=== PATIENT | female | born 1950 | race Caucasian/White ===

== ENCOUNTER 2020-04-21 12:24 | Outpatient (REF) | payer SELFPAY ==
[2020-04-21 13:38] LABS: Abs Immature Grans 0.03 10^3/uL (0.0-0.06); Absolute Basophil Count 0.04 10^3/uL (0.0-0.2); Absolute Eosinophil Count 0.38 10^3/uL (0.0-0.7); Absolute Lymphocyte Count 1.55 10^3/uL (1.2-3.4); Absolute Monocyte Count 0.61 10^3/uL (0.1-0.8); Absolute Neutrophil Count 4.38 10^3/uL (1.2-6.7); Basophils % 0.6; Eosinophils % 5.4; HGB 11.9 g/dL (11.2-15.7); Immature Grans % 0.4; Lymphocytes % 22.2; MCH 32.3 pg (27.0-33.0); MCHC 31.3 % (32.0-36.0); MCV 103.3 fL (80-95); Monocytes % 8.7; Neutrophils % 62.7; Nucleated RBC 0 %; Platelet Count 169 10^3/uL (130-400); RBC 3.68 10^6/uL (3.93-5.22); RDW 14.9 % (11.7-14.6); RDW-SD 56.8 fL; WBC 6.99 10^3/uL (4.4-10.8)
[2020-04-21 13:55] LABS: ALT 52 U/L (14-59); AST 35 U/L (15-37); Albumin 3.3 g/dL (3.4-5.0); Alkaline Phosphatase 57 U/L (46-116); Anion Gap 8.3 mmol/L (3-11); BUN 21 mg/dL (7-18); C-Reactive Protein 0.38 mg/dL (0.0-0.3); CO2 28.7 mmol/L (21.0-32.0); CREATININE 0.96 mg/dL (0.55-1.02); Calcium 8.6 mg/dL (8.5-10.1); Chloride 104 mmol/L (98-107); Estimated GFR 57.63 (mL/min/1.73m2); Glucose 141 mg/dL (74-106); Potassium 4.1 mmol/L (3.5-5.1); Sodium 141 mmol/L (136-145); Total Protein 6.1 g/dL (6.4-8.2)
[2020-04-21 14:19] LABS: ESR 25 mm/hr (0-30)
[2020-04-24 11:44] LABS: Hepatitis C Ab w Rflx HCV PCR Negative (Negative)
== END 2020-04-21 12:44 ==
LOC: LBN 12:24
PROVIDERS: PCP Family Medicine; Visit Provider Nurse Practitioner Adult Health
DX: B19.20 Unspecified viral hepatitis C without hepatic coma (principal); E11.43 Type 2 diabetes mellitus with diabetic autonomic (poly)neuropathy; E78.89 Other lipoprotein metabolism disorders; I10 Essential (primary) hypertension
CPT/HCPCS: 80053; 85652; 86803; 83036; 85025; 86140

== ENCOUNTER 2020-05-13 11:49 | Outpatient (REF) | payer SELFPAY | END 2020-05-13 12:09 | LOC: LBN 11:49 | PROVIDERS: PCP Family Medicine; Visit Provider Nurse Practitioner Adult Health | DX: A04.71 Enterocolitis due to Clostridium difficile, recurrent (principal) | CPT/HCPCS: 87324 ==

== ENCOUNTER 2020-05-22 13:40 | Outpatient (REF) | payer MEDICARE, SELFPAY ==
[2020-05-22 14:25] LABS: Abs Immature Grans 0.15 10^3/uL (0.0-0.06); Absolute Basophil Count 0.02 10^3/uL (0.0-0.2); Absolute Lymphocyte Count 0.49 10^3/uL (1.2-3.4); Absolute Monocyte Count 0.63 10^3/uL (0.1-0.8); Absolute Neutrophil Count 9.45 10^3/uL (1.2-6.7); Basophils % 0.2; Eosinophils % 2.7; HCT 36.9 % (36.0-46.0); Immature Grans % 1.4; Lymphocytes % 4.4; MCH 32.6 pg (27.0-33.0); MCHC 32.5 % (32.0-36.0); MCV 100.3 fL (80-95); MPV 12.8 fL (8.0-11.0); Monocytes % 5.7; Neutrophils % 85.6; Nucleated RBC 0 %; Platelet Count 222 10^3/uL (130-400); RBC 3.68 10^6/uL (3.93-5.22); RDW 15.1 % (11.7-14.6); RDW-SD 56.5 fL; WBC 11.04 10^3/uL (4.4-10.8)
[2020-05-22 15:31] LABS: ALT 78 U/L (14-59); AST 56 U/L (15-37); Albumin 3.1 g/dL (3.4-5.0); Alkaline Phosphatase 82 U/L (46-116); Anion Gap 19.5 mmol/L (3-11); Bilirubin, Total 0.6 mg/dL (0.2-1.0); CO2 16.5 mmol/L (21.0-32.0); Chloride 98 mmol/L (98-107); Estimated GFR 2.89 (mL/min/1.73m2); Glucose 86 mg/dL (74-106); Sodium 134 mmol/L (136-145); TSH 2.53 uIU/mL (0.36-3.74); Total Protein 7.4 g/dL (6.4-8.2); Vitamin B12 569 pg/mL (193-986)
[2020-05-22 15:52] LABS: BUN 234 mg/dL (7-18); CREATININE 12.82 mg/dL (0.55-1.02)
[2020-05-22 15:53] LABS: Potassium 8.2 mmol/L (3.5-5.1)
== END 2020-05-22 14:00 ==
LOC: LBN 13:40
PROVIDERS: PCP Family Medicine; Visit Provider Nurse Practitioner Adult Health
DX: R68.89 Other general symptoms and signs (principal); E11.9 Type 2 diabetes mellitus without complications; R94.6 Abnormal results of thyroid function studies
CPT/HCPCS: 80053; 82607; 84443; 85025

== ENCOUNTER 2020-05-22 16:33 | Emergency (ER) | payer MEDICARE, MEDICAID, SELFPAY ==
[2020-05-22] VITALS (53 sets, daily range): BP systolic 65–150; BP diastolic 30–109; PULSE 84–116; RESP 16–25; TEMP 36.8; O2SAT 94–99
--- NOTE | 2020-05-22 16:30 | RT.EKG_ITS ---
APPROVED REPORT Exam: Resting ECG Patient Location: E HR:84 bpm ECG Measurements Heart Rate 84 AXIS PA 184 P 40 QRSd 187 QRS -30 QT 478 T 101 QTc 565 Conclusion Sinus rhythm...normal P axis, V-rate 60- 99 Left bundle branch block...QRSd>120, broad/notched R
--- NOTE | 2020-05-22 17:00 | ED.GENADUL_ITS ---
Discharge Plan Disposition Patient Dis[facility] Condition: Serious Discharge Details Clinical Impression: Acute renal failure, Acute UTI Primary Care Provider: Braydon Akins ED Provider: Benjamín Berg Home Meds and New Rx's Prescriptions: No Action fluconazole [Diflucan] 100 mg Tablet 100 mg PO DAILY RF: 0 acetaminophen 325 mg Tablet 650 mg PO PRN PRNRF: 0 amlodipine 2.5 mg Tablet 2.5 mg PO DAILY RF: 0 atorvastatin 20 mg Tablet 20 mg PO QPM RF: 0 donepezil 10 mg Tablet 10 mg PO QHS RF: 0 citalopram 20 mg Tablet 20 mg PO DAILY RF: 0 furosemide 20 mg Tablet 20 mg PO QAM RF: 0 ibuprofen 600 mg Tablet 600 mg PO Q8H PRNRF: 0 bupropion HCl 300 mg Tablet Extended Release 24 Hr 300 mg PO QAM RF: 0 multivitamin Tablet 1 tab PO DAILY RF: 0 metformin 500 mg Tablet 500 mg PO BID RF: 0 metoprolol succinate 50 mg Tablet Extended Release 24 Hr 150 mg PO DAILY RF: 0 loperamide 2 mg Tablet 2 mg PO QAM RF: 0 loperamide 2 mg Tablet See Rx Instructions .ROUTE .COMPLEX PRNRF: 0 lisinopril 5 mg Tablet 5 mg PO DAILY RF: 0 pantoprazole 40 mg Tablet,Delayed Release (Dr/Ec) 40 mg PO DAILY RF: 0 Medical Decision Making <CHAO Gregory - Last Filed: 05/22/20 19:58> This is a 70-year-old female presenting to the ER from local rehab facility for increasing weakness, failure to thrive, rash, critical potassium and renal function. These labs were drawn earlier today. She has been treated with Diflucan as an outpatient but the rash is not getting any better. Family reports that the patient is a full code and would want dialysis if needed. I immediately discussed the case with Dr. Chavez. Patient had 2 lines of IV access, Shah catheter placed, received calcium gluconate, insulin, dextrose, albuterol neb, liter normal saline, 1 L lactated Ringer's. Will obtain EKG, repeat laboratory values from earlier today, add on troponin, BNP, lactate, VBG, and urinalysis. Based upon her renal function, likelihood that she will require dialysis, it does not appear as though we will be able to admit the patient here to our facility and therefore I very early on in her evaluation contacted the [facility] transfer center. EKG was obtained at 1642, please see official report by Dr. Zayas. Sinus rhythm, ventricular of 84. Left bundle branch block. QT interval 478, QTc 565, QRS 187. I did speak with the patient's daughter at 1655 Mate[address] De Jesus [phone], as my HPI states she does tell me that the patient is a full code and would want dialysis. She understands the gravity of the situation and understands the patient will likely require transfer. I initially spoke with Jessie from the [facility] transfer center at 1713, I was told that they could likely not take the patient however they were not on divert, and that we should begin looking elsewhere for transfer. I did clarify that they were not on divert and requested that they strongly consider excepting this critically ill patient. [facility] transfer line was then contacted and I spoke with them at 1728. They stated that they had limited transfer capabilities but I did speak with Dr. James, who was excepting the patient but then the transfer command center analyst, Dr. St, came on the line and stated that he spoke with Dr. Douglas at [facility] and they would in fact be excepting the patient. Awaiting call from [facility]. In the meantime laboratory values have resulted. White blood cell count of 11.12 hemoglobin 12.5 hematocrit 39.0 platelet count 234 VBG pH 7.17, sodium 134, potassium 8.2, chloride 97, carbon 118.7 anion gap 18.3 BUN 245, creatinine 12.75, glucose 97, calcium 7.8 magnesium 2.3 troponin less than 0.05 BNP 1745, urine cloudy, moderate blood, trace leukoesterase, 10- 20 white blood cells. Many bacteria Creatinine 1 month ago was 0.92 and potassium was 4.1 Patient initially presented with blood pressure 142/109 and subsequently has trended downward to the 60s over 30s. Case again discussed with Dr. Chavez. We did initiate a nor epi drip of 10. Blood pressure did subsequently trend upward 139/43. Patient did require the nor epi to maintain her blood pressure in appropriate range. We did request records from [facility] and I was able to review some of her previous medical records. I placed a call to [facility] at 181 after a head not received a phone call back. After speaking with Jessie and being placed on hold my call was disconnected. I then spoke with Lucita at the transfer center at 182 from [facility] regarding my concern that I had not heard from [facility], her plan was to reach out to Dr. St once again. I then received a phone call from [facility] transfer center, Jessie, at 182 requesting that I speak with Dr. Mclaughlin at [facility] for potential transfer. After discussing the case with him, he felt that the patient was too sick to go to his facility. In the meantime I once again spoke with the patient's daughter explaining her the situation, she understood but was quite concerned that the transfer was taking so long. I then received a phone call from Lucita at the [facility] transfer line she states that she was told by Dr. Douglas that [facility] would be excepting and would be calling us soon in order to accept transfer. This call took place at 183. Given transfer has been delayed, will obtain CT imaging of the chest, abdomen, pelvis without contrast to further evaluate for potential infectious process, obstruction, etc. When patient returned from CT she was given 2.25 IV of Zosyn. At 185 I received a call from [facility] and spoke with Dr. Brown, Dr. Ca, from the ICU and nephrology teams. I was told that Dr. Henderson would accept transfer of the patient into the ICU. All appropriate paperwork completed. I then spoke with the patient's daughter one last time to make her aware of the transfer. Patient is complaining of pruritus. Given her mental state I would prefer not to give her Benadryl, will instead give 125 IV Solu-Medrol. At 1950 her heart rate was 94, blood pressure 125/40. She is now more awake than her initial presentation. She understands that she will be transferred to [facility], has no additional questions or concerns at this time. It should be noted that at the time of her transfer we are awaiting the official read of the CT of chest, abdomen, pelvis, we did receive a message on the computer that the radiologist was pulled away for a more emergent study but that primarily there was nothing acute. Medical Records Medical records reviewed: Yes I reviewed the patient's medical records. Lab Data Lab results reviewed: Yes I reviewed the patient's lab results. Lab results narrative: 05/22/20 18:08 Urine - Reflex from Ua Urine Culture - Pending 05/22/20 17:51 Blood Blood Culture - Pending 05/22/20 17:51 Blood Blood Culture - Pending Laboratory Tests Range/Units 05/22/20 05/22/20 05/22/20 16:50 16:50 16:50 WBC (4.4-10.8) 10^3/uL 11.12 H RBC (3.93-5.22) 10^6/uL 3.88 L Hgb (11.2-15.7) g/dL 12.5 Hct (36.0-46.0) % 39.0 MCV (80-95) fL 100.5 H MCH (27.0-33.0) pg 32.2 MCHC (32.0-36.0) % 32.1 RDW (11.7-14.6) % 15.3 H Plt Count (130-400) 10^3/uL 234 MPV (8.0-11.0) fL 12.8 H Immature Gran % 1.2 Neutrophils % 88.6 Lymphocytes % 3.6 Monocytes % 4.3 Eosinophils % 2.1 Basophils % 0.2 Nucleated RBC % % 0 Absolute Neutrophils (1.2-6.7) 10^3/uL 9.85 H Absolute Lymphocytes (1.2-3.4) 10^3/uL 0.40 L Absolute Monocytes (0.1-0.8) 10^3/uL 0.48 Absolute Eosinophils (0.0-0.7) 10^3/uL 0.23 Absolute Basophils (0.0-0.2) 10^3/uL 0.02 VBG pH (7.31-7.41) VBG pCO2 (41-51) mmHg VBG pO2 mmHg VBG HCO3 (23-28) mmol/L VBG Total CO2 (24-29) mmol/L VBG O2 Saturation % VBG Base Excess (-2-3) mmol/L VBG Lactate (0.6-1.4) mmol/L Sodium (136-145) mmol/L 134 L Potassium (3.5-5.1) mmol/L 8.2 H* Chloride (98-107) mmol/L 97 L Carbon Dioxide (21.0-32.0) mmol/L 18.7 L Anion Gap (3-11) mmol/L 18.3 H BUN (7-18) mg/dL 245 H* Creatinine (0.55-1.02) mg/dL 12.75 H* Estimated GFR/1.73 m2 (mL/min/1.73m2) 2.91 Glucose (74-106) mg/dL 97 Calcium (8.5-10.1) mg/dL 7.3 L Magnesium (1.8-2.4) mg/dL 2.3 Total Bilirubin (0.2-1.0) mg/dL 0.7 AST (15-37) U/L 60 H ALT (14-59) U/L 87 H Alkaline Phosphatase (46-116) U/L 89 Troponin I (<0.06) ng/mL < 0.05 NT-Pro-B Natriuret Pep (<300) pg/mL 1745 H Total Protein (6.4-8.2) g/dL 8.2 Albumin (3.4-5.0) g/dL 3.2 L Urine Color (Yellow) Urine Clarity (Clear) Urine pH (5-8) Ur Specific [place] (1.005-1.025) Urine Protein (Negative) mg/dL Urine Ketones (Negative) mg/dL Urine Blood (Negative) Urine Nitrite (Negative) Urine Bilirubin (Negative) Urine Urobilinogen (Up TO 0.2) EU/dL Ur Leukocyte Esterase (Negative) Urine RBC (0-2) HPF Urine WBC (0-5) HPF Ur Epithelial Cells (Negative) HPF Urine Crystals (Negative) HPF Urine Bacteria (Negative) HPF Urine Casts (Negative) LPF Urine Mucus (Negative) Ur Culture Indicated? Urine Glucose (Negative) mg/dL Range/Units 05/22/20 05/22/20 05/22/20 17:20 17:20 18:08 WBC (4.4-10.8) 10^3/uL RBC (3.93-5.22) 10^6/uL Hgb (11.2-15.7) g/dL Hct (36.0-46.0) % MCV (80-95) fL MCH (27.0-33.0) pg MCHC (32.0-36.0) % RDW (11.7-14.6) % Plt Count (130-400) 10^3/uL MPV (8.0-11.0) fL Immature Gran % Neutrophils % Lymphocytes % Monocytes % Eosinophils % Basophils % Nucleated RBC % % Absolute Neutrophils (1.2-6.7) 10^3/uL Absolute Lymphocytes (1.2-3.4) 10^3/uL Absolute Monocytes (0.1-0.8) 10^3/uL Absolute Eosinophils (0.0-0.7) 10^3/uL Absolute Basophils (0.0-0.2) 10^3/uL VBG pH (7.31-7.41) 7.17 L* VBG pCO2 (41-51) mmHg 42 VBG pO2 mmHg 46 VBG HCO3 (23-28) mmol/L 15 L VBG Total CO2 (24-29) mmol/L 15 L VBG O2 Saturation % 75 VBG Base Excess (-2-3) mmol/L -13 L VBG Lactate (0.6-1.4) mmol/L 1.1 Sodium (136-145) mmol/L Potassium (3.5-5.1) mmol/L Chloride (98-107) mmol/L Carbon Dioxide (21.0-32.0) mmol/L Anion Gap (3-11) mmol/L BUN (7-18) mg/dL Creatinine (0.55-1.02) mg/dL Estimated GFR/1.73 m2 (mL/min/1.73m2) Glucose (74-106) mg/dL Calcium (8.5-10.1) mg/dL Magnesium (1.8-2.4) mg/dL Total Bilirubin (0.2-1.0) mg/dL AST (15-37) U/L ALT (14-59) U/L Alkaline Phosphatase (46-116) U/L Troponin I (<0.06) ng/mL NT-Pro-B Natriuret Pep (<300) pg/mL Total Protein (6.4-8.2) g/dL Albumin (3.4-5.0) g/dL Urine Color (Yellow) Yellow Urine Clarity (Clear) Cloudy Urine pH (5-8) 6.0 Ur Specific [place] (1.005-1.025) >= 1.030 H Urine Protein (Negative) mg/dL 30 H Urine Ketones (Negative) mg/dL Trace H Urine Blood (Negative) Moderate H Urine Nitrite (Negative) Negative Urine Bilirubin (Negative) Small H Urine Urobilinogen (Up TO 0.2) EU/dL 0.2 Ur Leukocyte Esterase (Negative) Trace H Urine RBC (0-2) HPF 3-5 H Urine WBC (0-5) HPF 10-20 H Ur Epithelial Cells (Negative) HPF Few Urine Crystals (Negative) HPF Negative Urine Bacteria (Negative) HPF Many Urine Casts (Negative) LPF Negative Urine Mucus (Negative) Trace Ur Culture Indicated? Yes Urine Glucose (Negative) mg/dL Negative ECG Data Attestation: I personally reviewed and interpreted this ECG (s) as follows: Interpretation: Please see official report by Dr. Chavez <Wilbur Chavez MD - Last Filed: 05/22/20 19:14> ?I had a [id number] encounter with the patient. I evaluated the patient. I discussed case with MANAGER LABORATORY/PA and I reviewed MANAGER LABORATORY/PA note and agree with note as documented. HPI <CHAO Gregory - Last Filed: 05/22/20 19:58> General Mode of arrival: EMS . Date/Time Provider Initiated Documentation: 05/22/20 16:35 . Limitations to Documentation: altered mental status . Information obtained by: patient, family and EMS . HPI Narrative: This is a 70-year-old female who resides at a local long-term care facility presenting via EMS with a history of diabetes, morbid obesity, generalized weakness, hypertension, obstructive sleep apnea, mild cognitive impairment, hyperlipidemia, depression, auditory hallucinations, visual hallucinations, osteoarthritis, bilateral leg edema. She sometime within the last month developed a rash and is taking Diflucan for a fungal rash. She was placed at the rehab facility on April 19 with a new diagnosis of dementia and inability to care for herself. Daughter states that she has seen a significant decline over the past 2-3 weeks. I was able to speak with her daughter Mateus don regarding their wishes, patient is currently a full code. They actually have the advanced directives paperwork at home and simply have not filled out yet but as of this very moment she is a full code. Patient was sent here today for abnormal lab values that were drawn just a couple of hours ago, increasing generalized weakness, not eating or drinking, a rash that is not responding to oral Diflucan. Patient has no history of renal failure. Patient is able to minimally interactive here in the ER, opens and closes her eyes, able to answer yes and no questions, moves all extremities. She is able to follow commands. She tells me no when asked if she has any pain. Patient admits that she overall does not feel well but has no specific questions or concerns right now. Patient did have to quarantine for 14 days one placed at the rehab facility, since her quarantine has had no sick contacts or travel. Related Data Home Medications Medication Instructions Recorded Confirmed acetaminophen 650 mg PO PRN PRN 05/22/20 05/22/20 amlodipine 2.5 mg PO DAILY 05/22/20 05/22/20 atorvastatin 20 mg PO QPM 05/22/20 05/22/20 bupropion HCl 300 mg PO QAM 05/22/20 05/22/20 citalopram 20 mg PO DAILY 05/22/20 05/22/20 donepezil 10 mg PO QHS 05/22/20 05/22/20 fluconazole [Diflucan] 100 mg PO DAILY 05/22/20 05/22/20 furosemide 20 mg PO QAM 05/22/20 05/22/20 ibuprofen 600 mg PO Q8H PRN 05/22/20 05/22/20 lisinopril 5 mg PO DAILY 05/22/20 05/22/20 loperamide 2 mg PO QAM 05/22/20 05/22/20 loperamide See Rx Instructions .ROUTE 05/22/20 05/22/20 .COMPLEX PRN metformin 500 mg PO BID 05/22/20 05/22/20 metoprolol succinate 150 mg PO DAILY 05/22/20 05/22/20 multivitamin 1 tab PO DAILY 05/22/20 05/22/20 pantoprazole 40 mg PO DAILY 05/22/20 05/22/20 Allergies Allergy/AdvReac Type Severity Reaction Status Date / Time No Known Allergies Allergy Unverified 05/22/20 16:49 General Stated Complaint: GenMedical MERISSA: 2 Review of Systems <CHAO Gregory - Last Filed: 05/22/20 19:58> Unobtainable due to mental status PFSH <CHAO Gregory - Last Filed: 05/22/20 19:58> Medical History Auditory hallucinations Cognitive impairment Depression Diabetes mellitus, type 2 Essential hypertension Functional urinary incontinence Hyperlipidemia Insomnia Morbid obesity Obstructive sleep apnea Onychogryphosis Primary osteoarthritis Visual hallucinations Weakness Social History Smoking risk assessment performed?: No Exam <CHAO Gregory - Last Filed: 05/22/20 19:58> Const General: cooperative and in distress Orientation: alert, awake, oriented to person and confused (Place and time) Limitations: altered mental status HENMT Head: normal to inspection, normocephalic and atraumatic Ears: external ears normal and EAC's normal General nose exam: external nose normal Mouth: moist mucous membranes abnormal (Dry) Throat: posterior oropharynx normal Eyes General: appearance normal, both eyes and all related structures Alignment and Position: alignment normal Periorbital: periorbital findings normal Eyelids: eyelids normal Conjunctivae: conjunctivae normal Sclera: sclerae normal Cornea: corneas normal Pupils: PERRL EOM: EOM intact bilaterally Direct ophthalmoscopy: normal light reflex Neck Neck: normal visual inspection, full ROM, no lymphadenopathy, no meningeal signs, trachea midline, supple and nontender Resp Effort & Inspection: normal respiratory effort, able to speak in complete sentences and cough Quality of cough: dry (Mild) Auscultation: diminished lung sounds bilaterally (Basis) Cardio Rate: regular rate Rhythm: regular rhythm GI Inspection: obesity Palpation: soft, not firm, no guarding and nontender Auscultation: normal bowel sounds Back/Spine/Pelvis Back: No back tenderness Skin General skin exam: dry skin Other: Patient has a diffuse patchy well demarcated, erythematous, blanchable, slightly papular rash is most concentrated on her back but does extend diffusely on her trunk, upper extremities and neck. There are no areas of excoriation, induration, warmth, tenderness, fluctuance. Neuro General: patient alert, patient awake, oriented Patient Orientation: Person and Confused (Place and time), moves all extremities, no meningeal signs and no focal motor deficits Cranial Nerves: CN's II-XI intact bilaterally Cognition: abnormal cognition Speech: speech normal Gait: other (Not tested) Motor: muscle tone normal throughout (Able to move all 4 extremities) and strength 5/5 throughout Sensory Exam: no sensory deficits noted Extrem General: full ROM, capillary refill normal, no calf tenderness and edema Laterality: bilateral (1-2+ bilateral lower extremities, slightly worse in the left) Psych Appearance: grossly normal Mental Status: mental status grossly normal Course <CHAO Gregory - Last Filed: 05/22/20 19:58> Vital Signs Vital signs: Vital Signs Temperature 36.8 C 05/22/20 16:38 Pulse 84 05/22/20 16:38 Respiratory Rate 23 05/22/20 16:38 Blood Pressure 142/109 H 05/22/20 16:38 Pulse Oximetry 96 05/22/20 16:38 Temperature 36.8 C 05/22/20 16:38 Temperature Source Skin 05/22/20 16:38 Pulse 84 05/22/20 16:38 Respiratory Rate 23 05/22/20 16:38 Blood Pressure 142/109 H 05/22/20 16:38 Blood Pressure Position Sitting 05/22/20 16:38 Pulse Oximetry 96 05/22/20 16:38 Oxygen Delivery Method Nasal Cannula 05/22/20 16:38 Oxygen Flow Rate 6 05/22/20 16:38 Comment 05/22/20 16:38 <Wilbur Chavez MD - Last Filed: 05/22/20 19:14> Critical Care Time Critical Care Time: Yes Total Critical Care Time: 90 (minutes) Attestation: Time spent on lab review, frequent reassessments and hemodynamic monitoring in patient with hyperkalemia and hypotension requiring pressors and potential to deteriorate at any time
[2020-05-22] MEDS: Normal Saline 50 ML 200 ML (17:07)
[2020-05-22] MEDS: Albuterol 2.5 MG/3 ML INH SOLN VIAL UPD (17:07)
[2020-05-22] MEDS: Dextrose 50%-Water 25 GM/50 ML SYR IVP (17:07)
[2020-05-22] MEDS: Insulin REGULAR-Human 100 UNITS/ML UNIT 10 UNITS IV (17:07)
[2020-05-22] MEDS: Calcium Gluconate 4.65 MEQ/10 ML VIAL 4.65 MG IVP (17:07)
[2020-05-22 17:16] LABS: Abs Immature Grans 0.13 10^3/uL (0.0-0.06); Absolute Basophil Count 0.02 10^3/uL (0.0-0.2); Absolute Eosinophil Count 0.23 10^3/uL (0.0-0.7); Absolute Monocyte Count 0.48 10^3/uL (0.1-0.8); Basophils % 0.2; Eosinophils % 2.1; HGB 12.5 g/dL (11.2-15.7); Immature Grans % 1.2; Lymphocytes % 3.6; MCH 32.2 pg (27.0-33.0); MCHC 32.1 % (32.0-36.0); MCV 100.5 fL (80-95); MPV 12.8 fL (8.0-11.0); Monocytes % 4.3; Neutrophils % 88.6; Nucleated RBC 0 %; Platelet Count 234 10^3/uL (130-400); RBC 3.88 10^6/uL (3.93-5.22); RDW 15.3 % (11.7-14.6); RDW-SD 57.1 fL; WBC 11.12 10^3/uL (4.4-10.8)
[2020-05-22 17:17] LABS: Absolute Neutrophil Count 9.85 10^3/uL (1.2-6.7)
[2020-05-22 17:27] LABS: BE (Venous) -13 mmol/L (-2-3); HCO3 (Venous) 15 mmol/L (23-28); O2 Sat (Venous) 75 %; TCO2 (Venous) 15 mmol/L (24-29); pCO2 (Venous) 42 mmHg (41-51); pO2 (Venous) 46 mmHg
[2020-05-22 17:29] LABS: Lactate 1.1 mmol/L (0.6-1.4)
[2020-05-22 17:30] LABS: pH (Venous) 7.17 (7.31-7.41)
[2020-05-22 17:30] LABS: ALT 87 U/L (14-59); AST 60 U/L (15-37); Albumin 3.2 g/dL (3.4-5.0); Alkaline Phosphatase 89 U/L (46-116); Anion Gap 18.3 mmol/L (3-11); Bilirubin, Total 0.7 mg/dL (0.2-1.0); CO2 18.7 mmol/L (21.0-32.0); Calcium 7.3 mg/dL (8.5-10.1); Chloride 97 mmol/L (98-107); Estimated GFR 2.91 (mL/min/1.73m2); Glucose 97 mg/dL (74-106); Magnesium 2.3 mg/dL (1.8-2.4); Sodium 134 mmol/L (136-145); Total Protein 8.2 g/dL (6.4-8.2)
[2020-05-22 17:31] LABS: Troponin I < 0.05 ng/mL (<0.06)
[2020-05-22 17:34] LABS: CREATININE 12.75 mg/dL (0.55-1.02); Potassium 8.2 mmol/L (3.5-5.1)
[2020-05-22 17:36] LABS: NT-proBNP 1745 pg/mL (<300)
--- NOTE | 2020-05-22 17:45 | DI.CT_ITS ---
EXAM: CT CHEST/ABD/PEL WO CLINICAL HISTORY: sob,acute renal failure, rash TECHNIQUE: Imaging Protocol: Axial computed tomography images with coronal and sagittal reformatted images were created and reviewed CONTRAST MATERIAL: Imaging Protocol: Axial computed tomography images with coronal and sagittal refo rmatted images were created and reviewed. COMPARISON: No exams were available for comparison FINDINGS: The examination is limited due to patient motion artifact. CHEST: Tracheobronchial tree: Patent where visualized. Mediastinum and Lis: No dominant adenopathy or fluid collection. Pulmonary parenchyma: No consolidation or dominant measurable mass. No architectural distortion. Infi ltrate in the left lingula which may represent atelectasis or scarring. Pleura: No effusion or pneumothorax. Heart: The heart is not dilated. Mild coronary artery calcification. Aortic valve calcification. No pericardial effusion. Aorta: Thoracic aorta non-dilated. Atherosclerosis. Lymph nodes: Within normal limits. Bones:Degenerative changes. Soft tissues: Unremarkable. ABDOMEN: Liver: Normal density. No measurable mass. Gallbladder and Biliary Tract: Cholelithiasis. No biliary ductal dilatation. Mild gallbladder diste ntion. Pancreas: Normal density, no abnormal calcifications or inflammatory process. Spleen: Normal. Adrenals: No masses seen. Kidneys: Normal size, contour and axis. No radiodense stones or obstructive uropathy. No masses seen. Abdominal Aorta: Abdominal portion non-dilated. Atherosclerosis. Bowel: No obstruction or bowel wall thickening. Appendix is unremarkable. Colonic diverticulosis but no evidence of acute diverticulitis. Peritoneal Cavity: No ascites, collection or mesenteric inflammatory response. Lymph Nodes: Within normal limits. Bones: There is an L1 compression fracture deformity. Degenerative changes are seen in the lumbar sp ine. Soft Tissues: Unremarkable. PELVIS: Bladder: A Shah catheter is seen in a nondistended urinary bladder. Reproductive Organs: Status post hysterectomy. Lymph Nodes: Within normal limits. Bones: Please see above. IMPRESSION: 1. Cholelithiasis with a mildly distended gallbladder. No pericholecystic fluid. There is concern f or gallbladder pathology, ultrasound should be considered. 2. No acute pulmonary process. RADIATION DOSE DELIVERED: 2,025.27mGy.cm Total DLP 2,025.27mGy.cm Total DLP DATA REPOSITORY: All CT scans at this facility are submitted to the National Radiology Data Registry (NRDR) Dose Index Registry (DIR) with the [employer] ([employer]). RADIATION OPTIMIZATION: All CT scans at this facility use at least one of these dose optimization te chniques: automated exposure control; mA and/or kV adjustment per patient size (includes targeted exa ms where dose is matched to clinical indication); or iterative reconstruction.
[2020-05-22 17:49] LABS: BUN 245 mg/dL (7-18)
[2020-05-22] MEDS: Normal Saline 1,000 ML 1000 ML IV (18:00)
[2020-05-22] MEDS: Lactated Ringers 1,000 ML 1000 ML IV (18:00)
[2020-05-22 18:11] LABS: Bilirubin Small (Negative); Blood Moderate (Negative); Clarity Cloudy (Clear); Glucose Negative (Negative); Ketones Trace mg/dL (Negative); Leukocyte Esterase Trace (Negative); Nitrite Negative (Negative); Specific Gravity >= 1.030 (1.005-1.025); Urobilinogen 0.2 EU/dL (Up TO 0.2)
[2020-05-22 18:19] LABS: Bacteria Many HPF (Negative); C & S Indicated? Yes; Casts Negative LPF (Negative); Crystals Negative HPF (Negative); Epithelial Cells Few HPF (Negative); Mucus Trace (Negative)
[2020-05-22] MEDS: methylPREDNISolone SUCC 125 MG VIAL IVP (19:14)
[2020-05-22] MEDS: PIPERACILLIN/TAZO 2.25 GM in Normal Saline 50 ML IVPB (19:30)
--- NOTE | 2020-05-22 20:16 | DI.VRAD_ITS ---
PROCEDURE INFORMATION: Exam: CT Chest Without Contrast Exam date and time: 05/22/2020 5:53 PM Age: 70 years old Clinical indication: Abdominal pain; Generalized; Shortness of breath; Chest pain; Type not specified; Patient HX: PT unable to answer questions, SOB, acute renal failure, rash TECHNIQUE: Imaging protocol: Computed tomography of the chest without contrast. Radiation optimization: All CT scans at this facility use at least one of these dose optimization techniques: automated exposure control; mA and/or kV adjustment per patient size (includes targeted exams where dose is matched to clinical indication); or iterative reconstruction. COMPARISON: No relevant prior studies available. FINDINGS: Limitations: Motion artifact does moderately limit the sensitivity of this examination. Lungs: No consolidation. No masses. Pleural space: No pneumothorax. No pleural effusion. Heart: No cardiomegaly. No pericardial effusion. Aorta: Unremarkable. No aortic aneurysm. Lymph nodes: Unremarkable. No enlarged lymph nodes. Bones/joints: No acute fracture. Soft tissues: Unremarkable. IMPRESSION: Limited evaluation due to motion. No acute findings identified. PROCEDURE INFORMATION: Exam: CT Abdomen And Pelvis Without Contrast Exam date and time: 05/22/2020 5:53 PM Age: 70 years old Clinical indication: Abdominal pain; Generalized; Shortness of breath; Chest pain; Type not specified; Patient HX: PT unable to answer questions, SOB, acute renal failure, rash TECHNIQUE: Imaging protocol: Computed tomography of the abdomen and pelvis without contrast. Radiation optimization: All CT scans at this facility use at least one of these dose optimization techniques: automated exposure control; mA and/or kV adjustment per patient size (includes targeted exams where dose is matched to clinical indication); or iterative reconstruction. COMPARISON: No relevant prior studies available. FINDINGS: Limitations: Motion artifact does moderately limit the sensitivity of this examination. Liver: Normal. No mass. Gallbladder and bile ducts: Calcified stones are noted in the gallbladder, which appears slightly distended. No pericholecystic inflammation. Pancreas: Normal. No ductal dilation. Spleen: Normal. No splenomegaly. Adrenal glands: Normal. No mass. Kidneys and ureters: No hydronephrosis or obstructive nephrolithiasis. Stomach and bowel: There is sigmoid diverticulosis without acute diverticulitis. No obstruction. No mucosal thickening. Appendix: No evidence of appendicitis. Intraperitoneal space: No free air. No significant fluid collection. Vasculature: No abdominal aortic aneurysm. Lymph nodes: Unremarkable. No enlarged lymph nodes. Urinary bladder: The urinary bladder is decompressed containing a Shah catheter. Reproductive: There has been a hysterectomy. Bones/joints: No acute fracture. Degenerative changes are noted in the lumbar spine. L1 superior endplate deformity may be degenerative in nature. Soft tissues: Unremarkable. IMPRESSION: 1. Cholelithiasis with distended gallbladder. No significant pericholecystic inflammation is noted, however correlate with clinical findings for any evidence of acute gallbladder pathology. If there is further clinical concern, an ultrasound may be considered. 2. No bowel obstruction or evidence of acute bowel inflammation. Dictated and Authenticated by: Liseth Carmen MD. Ordering:MIKE Butts MD
[2020-05-22 20:28] LABS: Troponin I < 0.05 ng/mL (<0.06)
== END 2020-05-22 23:00 | disposition short-term general hospital (02) ==
PROVIDERS: Emergency Provider Physician Assistant; PCP Family Medicine
DX: N17.8 Other acute kidney failure (principal); N39.0 Urinary tract infection, site not specified; E87.5 Hyperkalemia; R21 Rash and other nonspecific skin eruption; E11.9 Type 2 diabetes mellitus without complications; Z79.84 Long term (current) use of oral hypoglycemic drugs; I10 Essential (primary) hypertension
CPT/HCPCS: 36415; 51702; 71250; 80053; 82805; 87040; 87077; 93005; 94640; 96361; 96365; 96366; 96375; 99291; 99292; 74176; 81003; 81015; 83605; 83735; 83880; 84484; 85025; 87086; 87186; 93010; J0610; J2543; J2930; J7613

== ENCOUNTER → 2022-10-07 13:58 | Outpatient (BNVA) | payer MEDICARE, MEDICAID, SELFPAY | PROVIDERS: PCP Family Medicine; Referring Provider Family Medicine; Visit Provider Psychiatry & Neurology Neurology | DX: G20 Parkinson's disease (principal); F03.90 Unspecified dementia, unspecified severity, without behavioral disturbance, psychotic disturbance, mood disturbance, and anxiety; R40.0 Somnolence; R44.0 Auditory hallucinations; R13.11 Dysphagia, oral phase; R44.1 Visual hallucinations; Z99.3 Dependence on wheelchair | CPT/HCPCS: 99215 ==

== ENCOUNTER → 2022-11-25 10:53 | Outpatient (BNVA) | payer MEDICARE, MEDICAID, SELFPAY | PROVIDERS: PCP Family Medicine; Referring Provider Family Medicine; Visit Provider Psychiatry & Neurology Neurology | DX: G20 Parkinson's disease (principal); R40.0 Somnolence; R44.0 Auditory hallucinations; F03.90 Unspecified dementia, unspecified severity, without behavioral disturbance, psychotic disturbance, mood disturbance, and anxiety; R44.1 Visual hallucinations | CPT/HCPCS: 99214 ==

== ENCOUNTER → 2023-02-06 10:41 | Outpatient (BNVA) | payer MEDICARE, MEDICAID, SELFPAY | PROVIDERS: Visit Provider Psychiatry & Neurology Neurology | DX: G20 Parkinson's disease (principal); R13.11 Dysphagia, oral phase; Z99.3 Dependence on wheelchair; G31.83 Neurocognitive disorder with Lewy bodies; F02.80 Dementia in other diseases classified elsewhere, unspecified severity, without behavioral disturbance, psychotic disturbance, mood disturbance, and anxiety; R44.1 Visual hallucinations; R44.0 Auditory hallucinations; E11.9 Type 2 diabetes mellitus without complications; I10 Essential (primary) hypertension | CPT/HCPCS: 99214 ==

== ENCOUNTER → 2023-06-05 10:27 | Outpatient (BNVA) | payer MEDICARE, MEDICAID, SELFPAY | PROVIDERS: Visit Provider Psychiatry & Neurology Neurology | DX: G20.C Parkinsonism, unspecified (principal); R44.0 Auditory hallucinations; R44.1 Visual hallucinations; R13.11 Dysphagia, oral phase; G31.83 Neurocognitive disorder with Lewy bodies; F02.80 Dementia in other diseases classified elsewhere, unspecified severity, without behavioral disturbance, psychotic disturbance, mood disturbance, and anxiety; E11.9 Type 2 diabetes mellitus without complications; I10 Essential (primary) hypertension | CPT/HCPCS: 99215 ==

== ENCOUNTER → 2023-07-02 11:03 | Outpatient (BNVA) | payer MEDICARE, MEDICAID, SELFPAY | PROVIDERS: PCP Family Medicine; Referring Provider Family Medicine; Visit Provider Podiatrist | DX: L60.2 Onychogryphosis (principal); E11.42 Type 2 diabetes mellitus with diabetic polyneuropathy; G20.C Parkinsonism, unspecified; R09.89 Other specified symptoms and signs involving the circulatory and respiratory systems | CPT/HCPCS: 11721 ==

== ENCOUNTER → 2023-08-18 07:07 | Outpatient (BNVA) | payer MEDICARE, MEDICAID, SELFPAY | PROVIDERS: PCP Family Medicine; Referring Provider Family Medicine; Visit Provider Psychiatry & Neurology Neurology ==